=== PATIENT | male | born 2000 | race Caucasian/White ===

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

== ENCOUNTER → 2022-07-10 | Outpatient (CLI) | payer OTHER | LOC: COL.RAD 08:34 | DX: R13.14 Dysphagia, pharyngoesophageal phase (principal) ==